=== PATIENT | female | born 1935 | race Caucasian/White ===

== ENCOUNTER 2017-07-02 17:57 | Inpatient (IN) | payer MEDICARE ==
[~2017-07-02] VITALS: Ht 149.9 cm; Wt 65.0 kg
[2017-07-02] MEDS ORDERED: DILTIAZEM 125 MG in DEXTROSE 5% 100 ML IV SCH (18:03)
[2017-07-02] MEDS ORDERED: PANTOPRAZOLE 80 MG in SODIUM CHLORIDE 0.9% 100 ML IV SCH (18:03)
[2017-07-02] MEDS ORDERED: PANTOPRAZOLE 80 MG in SODIUM CHLORIDE 0.9% 50 ML IVPB ONE (18:03)
[2017-07-02] MEDS ORDERED: SODIUM CHLORIDE 0.9% 1,000 ML IV ONE (18:03)
[2017-07-02] MEDS ORDERED: RIVA20TA PO (18:15)
[2017-07-02] MEDS ORDERED: POTA10CA PO (18:15)
[2017-07-02] MEDS ORDERED: CIME200T6 PO (18:15)
[2017-07-02] MEDS ORDERED: ATOR20TA PO (18:15)
[2017-07-02] MEDS ORDERED: FURO20TA3 PO (18:15)
[2017-07-02] MEDS ORDERED: GLIP-33 PO (18:15)
[2017-07-02] MEDS ORDERED: METO50TA82 PO (18:15)
[2017-07-02] MEDS ORDERED: ZOLP-413 PO (18:15)
[2017-07-02] MEDS ORDERED: NAPR500T3 PO (18:15)
[2017-07-02] MEDS ORDERED: FENO160T PO (18:15)
[2017-07-02] MEDS ORDERED: WARF1TAB7 PO (18:15)
[2017-07-02] MEDS ORDERED: ZOLP10TA PO (18:15)
[2017-07-02] MEDS ORDERED: HYDR-3245 PO (18:15)
[2017-07-02] MEDS ORDERED: DILTIAZEM 5 MG/ML, 5ML ONE (18:22)
[2017-07-02] MEDS ORDERED: DILTIAZEM 5 MG/ML, 5ML IV ONE (18:30)
[2017-07-02] MEDS ORDERED: SODIUM CHLORIDE FLUSH 10ML SYR IVF ONE (18:30)
[2017-07-02] MEDS ORDERED: PLEASE ENTER ALLERGIES MC SCH ×2 (18:30)
[2017-07-02 18:35] LABS: HEMATOCRIT 24.7 % (34.6-47.8); HEMOGLOBIN 7.8 g/dL (11.7-16.4); WHITE BLOOD COUNT 12.4 x10^3/uL (3.4-10)
[2017-07-02 18:41] LABS: BLOOD UREA NITROGEN 34 mg/dL (7-18)
[2017-07-02] MEDS ORDERED: SODIUM CHLORIDE FLUSH 10ML SYR IVF PRN (19:30)
[2017-07-02] MEDS ORDERED: ONDANSETRON 2MG/ML, 2ML IVPush PRN (20:00)
[2017-07-02] MEDS ORDERED: morphine SULFATE 10 MG/ML, 1ML IVPush PRN (20:00)
[2017-07-02] MEDS ORDERED: LABETALOL 5MG/ML, 20ML IVPush PRN (20:00)
[2017-07-02] MEDS ORDERED: ACETAMINOPHEN 325 MG TABLET PO PRN (20:00)
[2017-07-02] MEDS: INSULIN DETEMIR 100 UNITS/ML, PEN SQ-INSULIN SCH ×3 (21:00→22:51)
[2017-07-02] MEDS: ATORVASTATIN 20 MG TABLET PO SCH (21:49)
[2017-07-02] MEDS: METOPROLOL TARTRATE 25 MG TABLET PO SCH (21:49)
[2017-07-02] MEDS: D5%-0.45% NACL 1,000 ML IV SCH (22:45)
[2017-07-02] MEDS: INSULIN ASPART 100 UNITS/ML, PEN SQ-INSULIN SCH (22:48)
[2017-07-02 23:30] VITALS: BP 100/64
[2017-07-02 23:45] VITALS: BP 96/64
[2017-07-03] VITALS (11 sets, daily range): BP systolic 60–148; BP diastolic 67–88
[2017-07-03 05:28] LABS: HEMATOCRIT 32.7 % (34.6-47.8); HEMOGLOBIN 10.6 g/dL (11.7-16.4); WHITE BLOOD COUNT 15.1 x10^3/uL (3.4-10)
[2017-07-03 05:39] LABS: BLOOD UREA NITROGEN 31 mg/dL (7-18)
[2017-07-03 05:52] LABS: ASPARTATE AMINO TRANSFERASE 79 U/L (15-37)
[2017-07-03] MEDS: METOPROLOL TARTRATE 25 MG TABLET PO SCH ×2 (05:58→17:46)
[2017-07-03 06:20] LABS: ANISOCYTOSIS 1+; POLYCHROMASIA 1+
[2017-07-03 06:21] LABS: POIKILOCYTOSIS 1+
[2017-07-03 06:22] LABS: HYPOCHROMIA 1+
[2017-07-03] MEDS: INSULIN ASPART 100 UNITS/ML, PEN SQ-INSULIN SCH ×3 (07:00→20:46)
[2017-07-03] MEDS ORDERED: PROPOFOL 10 MG/ML, 20ML ONE (08:30)
[2017-07-03] MEDS ORDERED: INSULIN ASPART 100 UNITS/ML, PEN SQ-INSULIN SCH (09:00)
[2017-07-03] MEDS: PANTOPRAZOLE 40 MG IV IVPush SCH (09:49)
[2017-07-03] MEDS: DILTIAZEM 5 MG/ML, 5ML IVPush PRN ×2 (10:41→20:48)
[2017-07-03] MEDS: D5%-0.45% NACL 1,000 ML IV SCH (12:00)
[2017-07-03] MEDS: ATORVASTATIN 20 MG TABLET PO SCH (20:45)
[2017-07-03] MEDS: INSULIN DETEMIR 100 UNITS/ML, PEN SQ-INSULIN SCH (20:46)
[2017-07-03 21:40] LABS: PATH.CAST-FLAG NOT PRESENT; SPERM-FLAG NOT PRESENT; SRC-FLAG NOT PRESENT; XTAL-FLAG NOT PRESENT; YLC-FLAG NOT PRESENT
[2017-07-03] MEDS: TEMAZEPAM 15 MG CAPSULE PO PRN (22:20)
[2017-07-04] VITALS (9 sets, daily range): BP systolic 101–148; BP diastolic 62–83
[2017-07-04 02:05] LABS: HEMATOCRIT 31.6 % (34.6-47.8); HEMOGLOBIN 10.2 g/dL (11.7-16.4); WHITE BLOOD COUNT 11.3 x10^3/uL (3.4-10)
[2017-07-04 02:15] LABS: BLOOD UREA NITROGEN 24 mg/dL (7-18)
[2017-07-04 02:18] LABS: ASPARTATE AMINO TRANSFERASE 58 U/L (15-37)
[2017-07-04] MEDS: DILTIAZEM 5 MG/ML, 5ML IVPush PRN ×2 (03:16→10:30)
[2017-07-04] MEDS: METOPROLOL TARTRATE 25 MG TABLET PO SCH ×2 (05:33→17:08)
[2017-07-04] MEDS: INSULIN ASPART 100 UNITS/ML, PEN SQ-INSULIN SCH ×4 (07:00→20:51)
[2017-07-04] MEDS: PANTOPRAZOLE 40 MG IV IVPush SCH (08:40)
[2017-07-04] MEDS ORDERED: DILTIAZEM 5 MG/ML, 5ML IVPush PRN (12:00)
[2017-07-04] MEDS: CEFTRIAXONE PMX 1GM/50ML 50 ML IV SCH (12:32)
[2017-07-04] MEDS: ATORVASTATIN 20 MG TABLET PO SCH (20:51)
[2017-07-04] MEDS: INSULIN DETEMIR 100 UNITS/ML, PEN SQ-INSULIN SCH (20:52)
[2017-07-04] MEDS: TEMAZEPAM 15 MG CAPSULE PO PRN (22:28)
[2017-07-05 03:55] VITALS: BP 117/73
[2017-07-05 05:22] LABS: BLOOD UREA NITROGEN 25 mg/dL (7-18)
[2017-07-05 05:24] LABS: HEMATOCRIT 32.6 % (34.6-47.8); HEMOGLOBIN 10.3 g/dL (11.7-16.4); WHITE BLOOD COUNT 11.6 x10^3/uL (3.4-10)
[2017-07-05 06:30] VITALS: BP 119/67
[2017-07-05] MEDS: METOPROLOL TARTRATE 25 MG TABLET PO SCH (06:31)
[2017-07-05] MEDS: INSULIN ASPART 100 UNITS/ML, PEN SQ-INSULIN SCH ×2 (07:00→12:18)
[2017-07-05 07:42] VITALS: BP 130/88
[2017-07-05] MEDS ORDERED: CEFD300C37 PO (09:25)
[2017-07-05] MEDS ORDERED: METO50TA82 PO (09:25)
[2017-07-05] MEDS: PANTOPRAZOLE 40 MG IV IVPush SCH (09:33)
[2017-07-05] MEDS ORDERED: PANT40TA3 PO (09:40)
[2017-07-05] MEDS: CEFTRIAXONE PMX 1GM/50ML 50 ML IV SCH (12:18)
[2017-07-05 14:26] VITALS: BP 135/78
[2017-07-05 18:07] LABS: HELICOBACTER PYLORI IGG <0.4 U/mL (0.0-0.8); HELICOBACTER PYLORI IGM <9.0 units (0.0-8.9)
== END 2017-07-05 16:45 | disposition home or self-care (01) | DRG 682 ==
LOC: ED 20:14 → EDIP 20:35 → 5SO 20:49
PROVIDERS: ADMIT Internal Medicine; ATTEND Internal Medicine
PROC: 30233N1 Transfusion of Nonautologous Red Blood Cells into Peripheral Vein, Percutaneous Approach (ICD-10-PCS; 2017-07-02)
PROC: 0DB98ZX Excision of Duodenum, Via Natural or Artificial Opening Endoscopic, Diagnostic (ICD-10-PCS; 2017-07-03)
PROC: 30233N1 Transfusion of Nonautologous Red Blood Cells into Peripheral Vein, Percutaneous Approach (ICD-10-PCS; principal; 2017-07-03 08:00)
DX: I12.9 Hypertensive chronic kidney disease with stage 1 through stage 4 chronic kidney disease, or unspecified chronic kidney disease (principal); K26.4 Chronic or unspecified duodenal ulcer with hemorrhage; D68.8 Other specified coagulation defects; D68.69 Other thrombophilia; E11.22 Type 2 diabetes mellitus with diabetic chronic kidney disease; N18.3 Chronic kidney disease, stage 3 (moderate); D62 Acute posthemorrhagic anemia; I69.354 Hemiplegia and hemiparesis following cerebral infarction affecting left non-dominant side; N39.0 Urinary tract infection, site not specified; I48.2 Chronic atrial fibrillation; E78.5 Hyperlipidemia, unspecified; E78.00 Pure hypercholesterolemia, unspecified; F43.9 Reaction to severe stress, unspecified; I25.10 Atherosclerotic heart disease of native coronary artery without angina pectoris; K21.9 Gastro-esophageal reflux disease without esophagitis; K44.9 Diaphragmatic hernia without obstruction or gangrene; K59.00 Constipation, unspecified; K80.20 Calculus of gallbladder without cholecystitis without obstruction; T39.395A Adverse effect of other nonsteroidal anti-inflammatory drugs [NSAID], initial encounter; T45.515A Adverse effect of anticoagulants, initial encounter; Z66 Do not resuscitate; Z79.84 Long term (current) use of oral hypoglycemic drugs; Z79.899 Other long term (current) drug therapy; Z79.01 Long term (current) use of anticoagulants; Z87.11 Personal history of peptic ulcer disease; Z95.1 Presence of aortocoronary bypass graft
CPT/HCPCS: 36415; 36430; 76705; 80048; 80053; 80074; 81001; 82040; 82962; 83036; 83735; 84100; 84443; 85018; 85025; 85610; 85730; 86677; 86850; 86900; 86923; 87077; 87086; 87186; 88305; 93005; 96365; 96366; 96368; J0696; J1815; J2704; C9113; P9016